=== PATIENT | male | born 1975 | race Hispanic/Latino ===

== ENCOUNTER 2019-05-07 14:33 | Outpatient (CLI) | payer OTHER ==
--- NOTE | 2019-05-07 14:51 | RAD ---
Right knee:4 views INDICATIONS:Knee pain COMPARISON:None FINDINGS: Joint spaces are maintained. No evidence of fracture. Minimal degenerative spurring from the posterio r patella and condyles. No soft tissue abnormality. IMPRESSION: Minimal degenerative change
== END 2019-05-07 14:34 | disposition home or self-care (01) ==
LOC: MADRAD 14:33
PROVIDERS: ATTEND Family Medicine
DX: M25.561 Pain in right knee (principal); M17.11 Unilateral primary osteoarthritis, right knee